=== PATIENT | female | born 2000 | race Two or more races ===

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

== ENCOUNTER 2025-01-15 00:03 | Emergency (ER) | payer MEDICAID, OTHER ==
[~2025-01-15] VITALS: Ht 167.6 cm; Wt 87.3 kg
[2025-01-15 00:11] VITALS: TEMP 100
[2025-01-15 00:23] LABS: COVID AG,FIA SOURCE NASAL SWAB
[2025-01-15 00:50] LABS: INFLUENZA TYPE A NEGATIVE FOR TYPE A (NEGATIVE); SARS-COV2 (COVID) ANTIGEN,FIA Negative (Negative)
[2025-01-15 01:06] LABS: INFLUENZA TYPE B POSITIVE FOR TYPE B (NEGATIVE)
[2025-01-15 01:31] VITALS: BP 103/61; PULSE 124; RESP 22; O2SAT 96
[2025-01-15] MEDS ORDERED: DOXY1TAB3 PO (01:52)
== END 2025-01-15 02:09 | disposition home or self-care (01) ==
LOC: EMS 00:05
DX: O99.511 Diseases of the respiratory system complicating pregnancy, first trimester (principal); J10.1 Influenza due to other identified influenza virus with other respiratory manifestations; Z3A.10 10 weeks gestation of pregnancy; Z20.822 Contact with and (suspected) exposure to COVID-19
CPT/HCPCS: 87804; 99283